=== PATIENT | male | born 1960 | race African-American/Black ===

== ENCOUNTER 2019-08-10 16:26 | Inpatient (IN) | payer OTHER ==
[~2019-08-10] VITALS: Ht 175.3 cm; Wt 183.3 kg
[2019-08-10] MEDS ORDERED: ONDANSETRON HCL 4MG/2ML INJ IV STA (17:15)
[2019-08-10] MEDS ORDERED: SODIUM CHLORIDE 0.9% 1,000 ML IV ONE ×2 (17:15→19:15)
[2019-08-10] MEDS ORDERED: KETOROLAC 30MG/ML VIAL IV STA (17:15)
[2019-08-10 18:47] LABS: BASOPHILS % 0.4 % (0.0-2.0); EOSINOPHILS % 0.4 % (0.0-5.0); HEMATOCRIT. 42.3 % (42.0-52.0); HEMOGLOBIN. 13.8 g/dL (14.0-18.0); LYMPHOCYTES % 21.9 % (20.0-50.0); MEAN CORPUSCULAR HEMOGLOBIN 29.4 pg (28.0-32.0); MEAN CORPUSCULAR VOLUME 89.9 fL (80.0-94.0); MEAN PLATELET VOLUME 8.8 fl (7.4-10.4); MONOCYTES % 8.2 % (2.0-8.0); NEUTROPHILS % 69.1 % (40.0-76.0); PLATELET 192 x1000/uL (130-400); RED CELL DISTRIBUTION WIDTH 15.1 % (11.6-14.6)
[2019-08-10 18:51] LABS: CHLORIDE 107 mEq/L (98-107)
[2019-08-10] MEDS ORDERED: DOCUSATE SODIUM 100MG CAPSULE PO PRN (22:45)
[2019-08-10] MEDS ORDERED: ONDANSETRON HCL 4MG/2ML INJ IV PRN (22:45)
[2019-08-10] MEDS ORDERED: IPRATROPIUM/ALBUTEROL 0.5-3(2.5)MG/3ML NEB NEB PRN (22:45)
[2019-08-10] MEDS ORDERED: ACETAMINOPHEN 325MG TABLET PO PRN (22:45)
[2019-08-11 01:30] VITALS: BP 126/72
[2019-08-11 02:00] VITALS: BP 130/50
[2019-08-11] MEDS: SODIUM CHLORIDE 0.9% 1,000 ML IV SCH (03:20)
[2019-08-11 08:00] VITALS: BP 111/73
[2019-08-11] MEDS: HEPARIN 5000 UNITS/ML VIAL SUBCUT SCH ×2 (09:17→22:30)
[2019-08-11 10:04] LABS: CLARITY URINE CLEAR (CLEAR); COLOR URINE YELLOW (YELLOW); KETONES URINE NEGATIVE (NEGATIVE); LEUKOCYTE ESTERASE URINE NEGATIVE (NEGATIVE); NITRITE URINE NEGATIVE (NEGATIVE); OCCULT BLOOD URINE NEGATIVE (NEGATIVE); PROTEIN URINE TRACE (NEGATIVE); SPECIFIC GRAVITY URINE 1.012 (1.005-1.030)
[2019-08-11 10:18] LABS: *AMPHETAMINES SCREEN URINE NEGATIVE (NEGATIVE); *BARBITURATES SCREEN URINE NEGATIVE (NEGATIVE); *BENZODIAZEPINES SCREEN URINE NEGATIVE (NEGATIVE); *COCAINE SCREEN URINE NEGATIVE (NEGATIVE); METHADONE URINE SCREEN NEGATIVE (NEGATIVE)
[2019-08-11 10:19] LABS: CANNABINOID URINE SCREEN NEGATIVE (NEGATIVE); OPIATES URINE SCREEN NEGATIVE (NEGATIVE); PHENCYCLIDINE URINE SCREEN NEGATIVE (NEGATIVE)
[2019-08-11 11:38] LABS: BASOPHILS % 0.4 % (0.0-2.0); EOSINOPHILS % 1.4 % (0.0-5.0); HEMATOCRIT. 40.1 % (42.0-52.0); HEMOGLOBIN. 13.1 g/dL (14.0-18.0); LYMPHOCYTES % 32.5 % (20.0-50.0); MEAN CORPUSCULAR HEMOGLOBIN 29.4 pg (28.0-32.0); MEAN CORPUSCULAR VOLUME 89.8 fL (80.0-94.0); MEAN PLATELET VOLUME 8.9 fl (7.4-10.4); MONOCYTES % 11.1 % (2.0-8.0); NEUTROPHILS % 54.6 % (40.0-76.0); PLATELET 214 x1000/uL (130-400); RED BLOOD CELL COUNT 4.47 mill/uL (4.7-6.1); RED CELL DISTRIBUTION WIDTH 14.9 % (11.6-14.6)
[2019-08-11 11:40] LABS: CHLORIDE 107 mEq/L (98-107)
[2019-08-11 11:55] LABS: LDL CHOLESTEROL 123 mg/dL (5-100)
[2019-08-11 11:56] LABS: HDL CHOLESTEROL 33 mg/dL (40-59)
[2019-08-11 11:59] LABS: CREATINE KINASE MB FRACTION < 1.0 ng/mL (0.5-3.6)
[2019-08-11 12:00] VITALS: BP 121/59
[2019-08-11 12:08] LABS: CREATINE KINASE 1065 IU/L (39-308)
[2019-08-11] MEDS: INSULIN LISPRO 100 UNITS/ML SUBCUT SCH ×3 (12:28→22:31)
[2019-08-11] MEDS: BLOOD SUGAR DIAGNOSTIC STRIP TEST SCH ×3 (12:29→21:57)
[2019-08-11] MEDS ORDERED: DEXTROSE 50% WATER 50ML SYRINGE IV PRN (12:30)
[2019-08-11 16:00] VITALS: BP 108/57
[2019-08-11 16:12] LABS: CREATINE KINASE MB FRACTION 1.1 ng/mL (0.5-3.6)
[2019-08-11 16:22] LABS: CREATINE KINASE 1018 IU/L (39-308)
[2019-08-11] MEDS: MORPHINE SULFATE 2 MG/ML CPJ (NOT FOR IM USE) IV PRN (17:11)
[2019-08-11 20:00] VITALS: BP 103/54
[2019-08-12] VITALS (7 sets, daily range): BP systolic 98–192; BP diastolic 61–90
[2019-08-12] MEDS: BLOOD SUGAR DIAGNOSTIC STRIP TEST SCH ×4 (06:56→21:57)
[2019-08-12] MEDS: INSULIN LISPRO 100 UNITS/ML SUBCUT SCH ×4 (06:57→22:31)
[2019-08-12 07:53] LABS: BASOPHILS % 0.6 % (0.0-2.0); EOSINOPHILS % 2.5 % (0.0-5.0); HEMATOCRIT. 39.5 % (42.0-52.0); LYMPHOCYTES % 46.6 % (20.0-50.0); MEAN CORPUSCULAR HEMOGLOBIN 29.5 pg (28.0-32.0); MEAN CORPUSCULAR VOLUME 89.3 fL (80.0-94.0); MEAN PLATELET VOLUME 8.6 fl (7.4-10.4); MONOCYTES % 12.7 % (2.0-8.0); NEUTROPHILS % 37.6 % (40.0-76.0); PLATELET 205 x1000/uL (130-400); RED BLOOD CELL COUNT 4.42 mill/uL (4.7-6.1); RED CELL DISTRIBUTION WIDTH 14.9 % (11.6-14.6)
[2019-08-12] MEDS: HEPARIN 5000 UNITS/ML VIAL SUBCUT SCH ×2 (08:42→21:54)
[2019-08-12] MEDS: SODIUM CHLORIDE 0.9% 1,000 ML IV SCH ×3 (09:00→22:35)
[2019-08-12] MEDS: MORPHINE SULFATE 2 MG/ML CPJ (NOT FOR IM USE) IV PRN ×2 (09:06→22:44)
[2019-08-12] MEDS ORDERED: BISACODYL 5MG TABLET PO NR (19:45)
[2019-08-12] MEDS: SENNOSIDES/DOCUSATE SOD 8.6/50MG TABLET PO SCH (21:53)
[2019-08-13] VITALS (7 sets, daily range): BP systolic 109–185; BP diastolic 66–88
[2019-08-13] MEDS: CLONIDINE 0.1MG TABLET PO PRN (06:57)
[2019-08-13] MEDS: BLOOD SUGAR DIAGNOSTIC STRIP TEST SCH ×4 (07:20→20:45)
[2019-08-13] MEDS: INSULIN LISPRO 100 UNITS/ML SUBCUT SCH ×4 (07:50→20:48)
[2019-08-13 07:52] LABS: BASOPHILS % 0.5 % (0.0-2.0); EOSINOPHILS % 2.7 % (0.0-5.0); HEMATOCRIT. 42.1 % (42.0-52.0); HEMOGLOBIN. 13.7 g/dL (14.0-18.0); LYMPHOCYTES % 42.8 % (20.0-50.0); MEAN CORPUSCULAR HEMOGLOBIN 29.1 pg (28.0-32.0); MEAN CORPUSCULAR VOLUME 89.4 fL (80.0-94.0); MEAN PLATELET VOLUME 8.8 fl (7.4-10.4); MONOCYTES % 12.1 % (2.0-8.0); NEUTROPHILS % 41.9 % (40.0-76.0); PLATELET 200 x1000/uL (130-400)
[2019-08-13] MEDS: DOCUSATE SODIUM 100MG CAPSULE PO SCH ×2 (09:00→17:00)
[2019-08-13] MEDS: POLYETHYLENE GLYCOL 3350 (17GM) 1 DOSE PACK PO SCH (09:00)
[2019-08-13 09:08] LABS: CHLORIDE 111 mEq/L (98-107)
[2019-08-13 09:13] LABS: PHOSPHORUS 1.8 mg/dL (2.5-4.9)
[2019-08-13 09:16] LABS: CREATINE KINASE 530 IU/L (39-308)
[2019-08-13] MEDS: HEPARIN 5000 UNITS/ML VIAL SUBCUT SCH ×2 (11:22→20:49)
[2019-08-13] MEDS ORDERED: ATOR20TA65 MT (11:56)
[2019-08-13] MEDS: POTASSIUM-SODIUM PHOSPHATE POWDER PACKET PO SCH ×2 (17:33→20:48)
[2019-08-13] MEDS: SENNOSIDES/DOCUSATE SOD 8.6/50MG TABLET PO SCH (20:48)
[2019-08-14] VITALS: BP 154/83
[2019-08-14 04:00] VITALS: BP 160/74
[2019-08-14] MEDS: CLONIDINE 0.1MG TABLET PO PRN (04:04)
[2019-08-14] MEDS: BLOOD SUGAR DIAGNOSTIC STRIP TEST SCH ×2 (06:59→12:20)
[2019-08-14 07:22] LABS: BASOPHILS % 0.4 % (0.0-2.0); EOSINOPHILS % 2.6 % (0.0-5.0); HEMATOCRIT. 40.7 % (42.0-52.0); HEMOGLOBIN. 13.3 g/dL (14.0-18.0); MEAN CORPUSCULAR HEMOGLOBIN 29.4 pg (28.0-32.0); MEAN CORPUSCULAR VOLUME 89.7 fL (80.0-94.0); MEAN PLATELET VOLUME 8.9 fl (7.4-10.4); MONOCYTES % 12.8 % (2.0-8.0); NEUTROPHILS % 43.2 % (40.0-76.0); PLATELET 190 x1000/uL (130-400); RED BLOOD CELL COUNT 4.54 mill/uL (4.7-6.1)
[2019-08-14 07:38] LABS: CHLORIDE 110 mEq/L (98-107)
[2019-08-14 07:45] LABS: PHOSPHORUS 2.5 mg/dL (2.5-4.9)
[2019-08-14 08:00] VITALS: BP 135/83
[2019-08-14] MEDS: POTASSIUM-SODIUM PHOSPHATE POWDER PACKET PO SCH (08:58)
[2019-08-14] MEDS: DOCUSATE SODIUM 100MG CAPSULE PO SCH (08:58)
[2019-08-14] MEDS: POLYETHYLENE GLYCOL 3350 (17GM) 1 DOSE PACK PO SCH (08:59)
[2019-08-14] MEDS: HEPARIN 5000 UNITS/ML VIAL SUBCUT SCH (08:59)
[2019-08-14] MEDS: INSULIN LISPRO 100 UNITS/ML SUBCUT SCH ×2 (09:32→12:50)
[2019-08-14 12:00] VITALS: BP 135/90
[2019-08-14 16:00] VITALS: BP 124/74
[2019-08-14 16:04] VITALS: BP 124/74
== END 2019-08-14 16:34 | disposition home or self-care (01) | DRG 438 ==
LOC: ER 16:26 → 6EST 21:01 → ENRESERV 22:47
PROVIDERS: ADMIT Internal Medicine; ATTEND Internal Medicine
DX: K85.90 Acute pancreatitis without necrosis or infection, unspecified (principal); N17.0 Acute kidney failure with tubular necrosis; E44.1 Mild protein-calorie malnutrition; M62.82 Rhabdomyolysis; Z68.43 Body mass index [BMI] 50.0-59.9, adult; D64.9 Anemia, unspecified; K52.9 Noninfective gastroenteritis and colitis, unspecified; E66.01 Morbid (severe) obesity due to excess calories; E78.5 Hyperlipidemia, unspecified; E87.6 Hypokalemia; E11.22 Type 2 diabetes mellitus with diabetic chronic kidney disease; E11.65 Type 2 diabetes mellitus with hyperglycemia; I12.9 Hypertensive chronic kidney disease with stage 1 through stage 4 chronic kidney disease, or unspecified chronic kidney disease; K57.30 Diverticulosis of large intestine without perforation or abscess without bleeding; K40.90 Unilateral inguinal hernia, without obstruction or gangrene, not specified as recurrent; E83.39 Other disorders of phosphorus metabolism; E73.9 Lactose intolerance, unspecified; M16.12 Unilateral primary osteoarthritis, left hip; N18.9 Chronic kidney disease, unspecified; Z82.49 Family history of ischemic heart disease and other diseases of the circulatory system; Z83.3 Family history of diabetes mellitus
CPT/HCPCS: 36415; 71045; 74176; 80048; 80061; 80305; 81003; 82550; 82553; 82962; 83735; 84100; 84443; 84484; 93005; 93970; 99285; J1644; J1815; J1885; J2270; J2405; J7030

== ENCOUNTER 2020-02-03 10:04 | Inpatient (IN) | payer OTHER ==
[~2020-02-03] VITALS: Ht 175.3 cm; Wt 166.1 kg
[~2020-02-03 10:04] MED LIST: ATOR20TA65 MT
[2020-02-03] MEDS ORDERED: MORPHINE SULFATE 4 MG/ML CPJ (NOT FOR IM USE) IV STA ×2 (10:41→17:38)
[2020-02-03] MEDS ORDERED: ONDANSETRON HCL 4MG/2ML INJ IV STA ×2 (10:41→17:38)
[2020-02-03 11:07] LABS: CLARITY URINE CLEAR (CLEAR); COLOR URINE YELLOW (YELLOW); KETONES URINE NEGATIVE (NEGATIVE); LEUKOCYTE ESTERASE URINE NEGATIVE (NEGATIVE); NITRITE URINE NEGATIVE (NEGATIVE); OCCULT BLOOD URINE NEGATIVE (NEGATIVE); PROTEIN URINE NEGATIVE (NEGATIVE); SPECIFIC GRAVITY URINE 1.015 (1.005-1.030); UROBILINOGEN URINE 0.2 E.U./dL (0.2-1.0)
[2020-02-03 11:08] LABS: BASOPHILS % 0.7 % (0.0-2.0); EOSINOPHILS % 1.6 % (0.0-5.0); HEMATOCRIT. 36.9 % (42.0-52.0); HEMOGLOBIN. 12.6 g/dL (14.0-18.0); LYMPHOCYTES % 33.1 % (20.0-50.0); MEAN CORPUSCULAR HEMOGLOBIN 31.1 pg (28.0-32.0); MEAN CORPUSCULAR VOLUME 91.1 fL (80.0-94.0); MEAN PLATELET VOLUME 8.7 fl (7.4-10.4); MONOCYTES % 10.2 % (2.0-8.0); NEUTROPHILS % 54.4 % (40.0-76.0); PLATELET 186 x1000/uL (130-400); RED BLOOD CELL COUNT 4.05 mill/uL (4.7-6.1); RED CELL DISTRIBUTION WIDTH 14.5 % (11.6-14.6)
[2020-02-03 11:15] LABS: CHLORIDE 107 mEq/L (98-107)
[2020-02-03 11:22] LABS: INR 0.9; PROTHROMBIN TIME 9.8 sec (9.6-11.0)
[2020-02-03] MEDS ORDERED: LABETALOL HCL 20MG/4ML CARPUJECT IV ONE (14:00)
[2020-02-03] MEDS ORDERED: LABETALOL 5MG/ML SYR 20 MG/4 ML SYRINGE IV ONE ×2 (14:19→15:30)
[2020-02-03] MEDS ORDERED: DEXAMETHASONE 4MG/ML 1ML VIAL IV ONE (15:15)
[2020-02-03] MEDS ORDERED: LABETALOL HCL 100MG TABLET PO ONE (15:30)
[2020-02-03] MEDS ORDERED: DIPHENHYDRAMINE 50MG CAPSULE PO ONE (16:00)
[2020-02-03] MEDS ORDERED: MORPHINE SULFATE 10 MG/ML CPJ IV ONE (17:45)
[2020-02-03] MEDS ORDERED: INSULIN REGULAR (HUMULIN R) 300UNITS/3ML SUBCUT ONE (19:45)
[2020-02-03] MEDS ORDERED: INSULIN REGULAR (HUMULIN R) 300UNITS/3ML SUBCUT NR (22:45)
[2020-02-03 23:00] VITALS: BP 137/62
[2020-02-03] MEDS ORDERED: NA PHOS,M-B/NA PHOS,DI-BA ENEMA 118ML PR PRN (23:00)
[2020-02-03] MEDS ORDERED: CLONIDINE 0.1MG TABLET PO PRN (23:00)
[2020-02-03] MEDS ORDERED: DOCUSATE SODIUM 100MG CAPSULE PO PRN (23:00)
[2020-02-03] MEDS ORDERED: ONDANSETRON HCL 4MG/2ML INJ IV PRN (23:00)
[2020-02-03] MEDS ORDERED: GUAIFENESIN 200MG/10ML SUGAR FREE UDC PO PRN (23:00)
[2020-02-03] MEDS ORDERED: MAGNESIUM/ALUMINUM HYDROXIDE/SIMETHICONE 30ML UDC PO PRN (23:00)
[2020-02-03] MEDS ORDERED: ACETAMINOPHEN 325MG TABLET PO PRN (23:00)
[2020-02-04] MEDS ORDERED: GLIP10TA10 MT (00:08)
[2020-02-04] MEDS ORDERED: ASPI-1497 MT (00:08)
[2020-02-04] MEDS ORDERED: ATOR-2 MT (00:08)
[2020-02-04] MEDS ORDERED: CHLO50TA MT (00:08)
[2020-02-04] MEDS ORDERED: TERA10CA4 MT (00:08)
[2020-02-04] MEDS ORDERED: CYAN-50 MT (00:08)
[2020-02-04] MEDS ORDERED: OMEP20TA2 MT (00:08)
[2020-02-04] MEDS ORDERED: ALFU10TA9 MT (00:08)
[2020-02-04] MEDS ORDERED: TOPUD MT (00:08)
[2020-02-04] MEDS ORDERED: METF-416 MT (00:08)
[2020-02-04] MEDS ORDERED: ATEN-42 MT (00:08)
[2020-02-04] MEDS ORDERED: CARV12.545 MT (00:08)
[2020-02-04] MEDS ORDERED: LISI-604 MT (00:08)
[2020-02-04] MEDS ORDERED: CHOL200077 MT (00:08)
[2020-02-04] MEDS ORDERED: EZET10TA13 MT (00:08)
[2020-02-04] MEDS: MORPHINE SULFATE 2 MG/ML CPJ (NOT FOR IM USE) IV PRN (02:08)
[2020-02-04 04:00] VITALS: BP 147/71
[2020-02-04] MEDS: AMLODIPINE 10MG TABLET PO SCH (06:55)
[2020-02-04 07:29] LABS: BASOPHILS % 0.2 % (0.0-2.0); HEMOGLOBIN. 11.9 g/dL (14.0-18.0); LYMPHOCYTES % 16.3 % (20.0-50.0); MEAN CORPUSCULAR HEMOGLOBIN 31.1 pg (28.0-32.0); MEAN CORPUSCULAR VOLUME 91.1 fL (80.0-94.0); NEUTROPHILS % 77.5 % (40.0-76.0); PLATELET 182 x1000/uL (130-400); RED BLOOD CELL COUNT 3.84 mill/uL (4.7-6.1); RED CELL DISTRIBUTION WIDTH 14.9 % (11.6-14.6)
[2020-02-04 07:40] LABS: CHLORIDE 106 mEq/L (98-107)
[2020-02-04 08:00] VITALS: BP 175/101
[2020-02-04] MEDS: ENOXAPARIN 40MG/0.4ML SYR SUBCUT SCH ×2 (08:33→21:14)
[2020-02-04] MEDS ORDERED: LISINOPRIL 20MG TABLET PO SCH (09:00)
[2020-02-04] MEDS ORDERED: DEXTROSE 50% WATER 50ML SYRINGE IV PRN (11:30)
[2020-02-04 12:00] VITALS: BP 134/54
[2020-02-04] MEDS: BLOOD SUGAR DIAGNOSTIC STRIP TEST SCH ×3 (12:17→21:04)
[2020-02-04] MEDS: HYDRALAZINE HCL 50MG TABLET PO SCH ×2 (12:22→21:00)
[2020-02-04] MEDS: INSULIN LISPRO 100 UNITS/ML SUBCUT SCH ×3 (12:23→21:16)
[2020-02-04] MEDS: INSULIN GLARGINE UD 100 UNITS/ML SYR SUBCUT SCH (14:21)
[2020-02-04 16:00] VITALS: BP 118/63
[2020-02-04 20:00] VITALS: BP 107/55
[2020-02-05] VITALS: BP 133/79
[2020-02-05 04:00] VITALS: BP 142/88
[2020-02-05] MEDS: BLOOD SUGAR DIAGNOSTIC STRIP TEST SCH ×4 (06:09→20:42)
[2020-02-05] MEDS: INSULIN LISPRO 100 UNITS/ML SUBCUT SCH ×4 (06:18→20:49)
[2020-02-05 08:00] VITALS: BP 151/72
[2020-02-05] MEDS: HYDRALAZINE HCL 50MG TABLET PO SCH ×2 (08:26→20:48)
[2020-02-05] MEDS: AMLODIPINE 10MG TABLET PO SCH (08:26)
[2020-02-05] MEDS: LISINOPRIL 20MG TABLET PO SCH (08:26)
[2020-02-05] MEDS: ENOXAPARIN 40MG/0.4ML SYR SUBCUT SCH ×2 (08:28→20:47)
[2020-02-05] MEDS: INSULIN GLARGINE UD 100 UNITS/ML SYR SUBCUT SCH (10:28)
[2020-02-05 12:00] VITALS: BP 121/73
[2020-02-05 16:00] VITALS: BP 124/60
[2020-02-05 19:20] VITALS: BP 135/71
[2020-02-05] MEDS: MORPHINE SULFATE 2 MG/ML CPJ (NOT FOR IM USE) IV PRN (20:12)
[2020-02-06] VITALS: BP 124/74
[2020-02-06] MEDS: HYDROCODONE/ACETAMINOPHEN 5/325MG TABLET PO PRN ×2 (00:14→21:13)
[2020-02-06 03:45] VITALS: BP 127/68
[2020-02-06] MEDS: BLOOD SUGAR DIAGNOSTIC STRIP TEST SCH ×4 (06:33→21:22)
[2020-02-06] MEDS: INSULIN LISPRO 100 UNITS/ML SUBCUT SCH ×4 (06:41→22:28)
[2020-02-06 08:00] VITALS: BP 128/62
[2020-02-06] MEDS: AMLODIPINE 10MG TABLET PO SCH (08:51)
[2020-02-06] MEDS: HYDRALAZINE HCL 50MG TABLET PO SCH ×2 (08:51→21:12)
[2020-02-06] MEDS: ENOXAPARIN 40MG/0.4ML SYR SUBCUT SCH ×2 (08:51→21:12)
[2020-02-06] MEDS: LISINOPRIL 20MG TABLET PO SCH (08:52)
[2020-02-06] MEDS: INSULIN GLARGINE UD 100 UNITS/ML SYR SUBCUT SCH (09:24)
[2020-02-06 12:00] VITALS: BP 122/71
[2020-02-06 16:00] VITALS: BP 126/63
[2020-02-06 20:00] VITALS: BP 146/68
[2020-02-07] VITALS: BP 117/59
[2020-02-07 04:00] VITALS: BP 141/75
[2020-02-07] MEDS: MORPHINE SULFATE 2 MG/ML CPJ (NOT FOR IM USE) IV PRN (05:17)
[2020-02-07] MEDS: BLOOD SUGAR DIAGNOSTIC STRIP TEST SCH ×2 (05:39→11:45)
[2020-02-07] MEDS: INSULIN LISPRO 100 UNITS/ML SUBCUT SCH ×2 (06:44→12:49)
[2020-02-07 08:00] VITALS: BP 156/83
[2020-02-07] MEDS: AMLODIPINE 10MG TABLET PO SCH (08:35)
[2020-02-07] MEDS: LISINOPRIL 20MG TABLET PO SCH (08:36)
[2020-02-07] MEDS: HYDRALAZINE HCL 50MG TABLET PO SCH (08:36)
[2020-02-07] MEDS: ENOXAPARIN 40MG/0.4ML SYR SUBCUT SCH (08:36)
[2020-02-07] MEDS: INSULIN GLARGINE UD 100 UNITS/ML SYR SUBCUT SCH (09:17)
[2020-02-07 11:05] VITALS: BP 156/83
[2020-02-07 12:20] VITALS: BP 148/69
[2020-02-07] MEDS ORDERED: ATORVASTATIN CALCIUM 20MG TABLET PO SCH (21:00)
== END 2020-02-07 16:31 | disposition home or self-care (01) | DRG 552 ==
LOC: ER 10:04 → 5WST 19:44 → ENRESERV 21:43
PROVIDERS: ADMIT Hospitalist; ATTEND Hospitalist
DX: M48.061 Spinal stenosis, lumbar region without neurogenic claudication (principal); Z68.43 Body mass index [BMI] 50.0-59.9, adult; M51.9 Unspecified thoracic, thoracolumbar and lumbosacral intervertebral disc disorder; E11.65 Type 2 diabetes mellitus with hyperglycemia; E66.01 Morbid (severe) obesity due to excess calories; I10 Essential (primary) hypertension; G89.29 Other chronic pain; Z79.899 Other long term (current) drug therapy; Z88.8 Allergy status to other drugs, medicaments and biological substances
CPT/HCPCS: 36415; 72131; 80053; 81003; 82962; 83036; 85025; 93005; 93970; 97162; 99285; J1100; J1650; J1815; J2270; J2405; J3490; Q0163